=== PATIENT | male | born 1950 | race Caucasian/White ===

== ENCOUNTER 2018-05-10 08:00 | Day surgery (SDC) | payer MEDICARE, OTHER ==
[~2018-05-10] VITALS: Ht 188 cm; Wt 68.2 kg
[2018-05-10] VITALS (14 sets, daily range): BP systolic 113–150; BP diastolic 61–74
[~2018-05-10 08:00] MED LIST: BUPR150T14 PO; CYAN-19 PO; HYDR-3972 PO; LOSA100T15 PO; MOUTH WASH PO; OMEP20TA5 PO; ROSU10TA PO
[2018-05-10] MEDS ORDERED: MORP30TA PO (08:34)
[2018-05-10] MEDS ORDERED: TERA5CAP4 PO (08:34)
[2018-05-10] MEDS ORDERED: TRAZ-218 PO (08:34)
[2018-05-10] MEDS ORDERED: VENL150C2 PO (08:34)
[2018-05-10 08:59] LABS: BASOPHILS # (AUTO) 0.2 X10'3 (0-0.2); BASOPHILS % (AUTO) 1.2 % (0-1); EOSINOPHILS # (AUTO) 0.3 X10'3 (0-0.9); EOSINOPHILS % (AUTO) 1.8 % (0-6); LYMPHOCYTES # (AUTO) 0.3 X10'3 (1.1-4.8); LYMPHOCYTES % (AUTO) 1.5 % (21-51); MEAN CORPUSCULAR HEMOGLOBIN 30.5 PG (27.0-31.0); MEAN CORPUSCULAR HGB CONC 33.3 % (33.0-36.5); MEAN CORPUSCULAR VOLUME 91.5 FL (78-98); MEAN PLATELET VOLUME 6.1 FL (7.4-10.4); MONOCYTES # (AUTO) 0.8 X10'3 (0-0.9); MONOCYTES % (AUTO) 4.2 % (2-12); NEUTROPHILS % (AUTO) 91.3 % (42-75); PRE OP HEMATOCRIT 36.2 % (42.0-52.0); PRE OP HEMOGLOBIN 12.1 g/dL (14.0-17.9); PRE OP PLATELET COUNT 710 X10'3 (140-440); RED BLOOD COUNT 3.96 X10'6 (4.70-6.10); RED CELL DISTRIBUTION WIDTH 13.4 % (11.5-14.5)
[2018-05-10] MEDS ORDERED: normal saline 1000ml 1,000 ML IV SCH (09:05)
[2018-05-10 09:09] LABS: PROTHROMBIN TIME 10.4 SECONDS (9.0-12.0)
[2018-05-10 09:17] LABS: ALBUMIN 2.9 G/DL (3.4-5.0); ANION GAP 10 (8-16); BLOOD UREA NITROGEN 11 MG/DL (7-18); BUN/CREATININE RATIO 12.1 (5.4-32.0); CHLORIDE 90 MMOL/L (99-107); CREATININE 0.91 MG/DL (0.60-1.10); GLUCOSE 92 MG/DL (70-104); POTASSIUM 4.8 MMOL/L (3.5-5.1); SODIUM 126 MMOL/L (135-145); eGFR 83 ML/MIN
[2018-05-10 09:43] LABS: ANISOCYTOSIS 1+; LARGE PLATELETS FEW; PLATELET ESTIMATE INCREASED; POLYCHROMASIA FEW; TOTAL CELLS COUNTED 100
[2018-05-10 09:44] LABS: BURR CELLS 1+
[2018-05-10] MEDS ORDERED: midazolam 2 mg/2 ml injection ONE (10:01)
[2018-05-10] MEDS ORDERED: LIDOcaine 1%/PF 5ML 10 MG/ML VIAL ONE (10:01)
[2018-05-10] MEDS ORDERED: fentaNYL/PF 50MCG/1 ML 2ML syringe ONE (10:01)
[2018-05-10] MEDS ORDERED: HYDROcodone/acetaminophen 10/325mg tab PO PRN (10:55)
== END 2018-05-10 12:30 | disposition home or self-care (01) ==
LOC: SSTAY O 08:00
PROVIDERS: ATTEND Radiology Vascular & Interventional Radiology
DX: D71 Functional disorders of polymorphonuclear neutrophils (principal); I10 Essential (primary) hypertension; J43.9 Emphysema, unspecified; Z87.891 Personal history of nicotine dependence; Z90.2 Acquired absence of lung [part of]; Z87.01 Personal history of pneumonia (recurrent); Z87.09 Personal history of other diseases of the respiratory system; Z92.21 Personal history of antineoplastic chemotherapy; Z92.3 Personal history of irradiation; Z72.89 Other problems related to lifestyle; Z93.1 Gastrostomy status; Z79.891 Long term (current) use of opiate analgesic; Z85.810 Personal history of malignant neoplasm of tongue; Z98.890 Other specified postprocedural states; Z79.899 Other long term (current) drug therapy
CPT/HCPCS: 32405; 36415; 71045; 77012; 80048; 85025; 85610; 87070; 87077; 87186; 99152; 99153; J2001; J2250; J3010; J7030

== ENCOUNTER 2018-12-06 12:41 | Outpatient (CLI) | payer OTHER ==
[~2018-12-06 12:41] MED LIST changes: -LOSA100T15 PO; +LOSA100T57 PO; +MORP30TA PO; -ROSU10TA PO; +ROSU10TA2 PO; +TERA5CAP4 PO; +TRAZ-251 PO; +VENL150C2 PO
== END 2018-12-06 23:59 | disposition home or self-care (01) ==
LOC: RAD 12:41
PROVIDERS: ATTEND Nurse Practitioner Family
DX: D00.00 Carcinoma in situ of oral cavity, unspecified site (principal); R13.12 Dysphagia, oropharyngeal phase; I10 Essential (primary) hypertension; J44.9 Chronic obstructive pulmonary disease, unspecified; Z85.89 Personal history of malignant neoplasm of other organs and systems; Z87.891 Personal history of nicotine dependence
CPT/HCPCS: 74230

== ENCOUNTER 2019-04-24 12:38 | Day surgery (SDC) | payer OTHER ==
[2019-04-23 11:50] LABS: BASOPHILS % (AUTO) 0.4 % (0-1); EOSINOPHILS # (AUTO) 0.2 X10'3 (0-0.9); EOSINOPHILS % (AUTO) 2.7 % (0-6); LYMPHOCYTES # (AUTO) 0.8 X10'3 (1.1-4.8); LYMPHOCYTES % (AUTO) 9.5 % (21-51); MEAN CORPUSCULAR HEMOGLOBIN 31.4 PG (27.0-31.0); MEAN CORPUSCULAR HGB CONC 34.1 g/dL (33.0-36.5); MEAN PLATELET VOLUME 6.6 FL (7.4-10.4); MONOCYTES # (AUTO) 0.9 X10'3 (0-0.9); MONOCYTES % (AUTO) 9.8 % (2-12); NEUTROPHILS # (AUTO) 6.9 X10'3 (1.8-7.7); NEUTROPHILS % (AUTO) 77.6 % (42-75); PRE OP HEMATOCRIT 34.8 % (42.0-52.0); PRE OP HEMOGLOBIN 11.8 g/dL (14.0-17.9); PRE OP PLATELET COUNT 313 X10'3 (140-440); RED BLOOD COUNT 3.78 X10'6 (4.70-6.10); RED CELL DISTRIBUTION WIDTH 13.6 % (11.5-14.5)
[2019-04-23 12:03] LABS: PRE OP INR 0.9 INR; PRE OP PROTIME 9.9 SECONDS (9.0-12.0)
[2019-04-23 12:12] LABS: ALBUMIN 3.8 G/DL (3.4-5.0); ALBUMIN/GLOBULIN RATIO 1.1 (1.1-1.5); ALKALINE PHOSPHATASE 91 IU/L (46-116); BLOOD UREA NITROGEN 10 MG/DL (7-18); BUN/CREATININE RATIO 12.5 (5.4-32.0); CALCIUM 9.1 MG/DL (8.5-10.1); CHLORIDE 95 MMOL/L (99-107); PRE OP ALT 22 U/L (30-65); PRE OP ANION GAP 10 (8-16); PRE OP AST 29 U/L (10-37); PRE OP BILIRUB, TOTAL 0.3 MG/DL (0.0-1.0); PRE OP POTASSIUM 4.6 MMOL/L (3.4-5.1); TOTAL CARBON DIOXIDE 24.4 MMOL/L (24-32); TOTAL PROTEIN 7.4 G/DL (6.4-8.2); eGFR > 90 ML/MIN
[2019-04-23 12:13] LABS: PRE OP GLUCOSE 60 MG/DL (70-104); PRE OP SODIUM 129 MMOL/L (135-145)
[2019-04-24] VITALS (8 sets, daily range): BP systolic 133–157; BP diastolic 81–89
[~2019-04-24] VITALS: Ht 188 cm; Wt 71.8 kg
[~2019-04-24 12:38] MED LIST changes: +ALBU8.5H8 IH; +CHOL400T14 PO; +CLON0.5T23 PO; -CYAN-19 PO; +CYAN100019 PO; +FERR325T32 PO; +LEVO88TA2 PO; +TIOT18CA3 INH; +albuterol 2.5 MG/3 ML nebule NEB ONE; +cefazolin/dext.iso 2gm/100 ML IV ONE; +famotidine 20mg tablet PO ONE; +ringers solution, lacted 1,000 ML IV SCH
[2019-04-24] MEDS ORDERED: BUPIVAcaine/PF 2.5 mg/ml (0.25%) 30ml vial ONE (13:31)
[2019-04-24] MEDS ORDERED: LIDOcaine 1% 30ml preserv. free vial ONE ×2 (13:31→16:36)
--- NOTE | 2019-04-24 13:59 | NUR ---
BLOOD SUGAR 67 PATIENT ASYMPTOMATIC, DR. ENGLISH MADE AWARE, NO NEW ORDERS NOTED.
[2019-04-24] MEDS ORDERED: ringers solution, lacted 1,000 ML IV SCH (14:32)
[2019-04-24] MEDS ORDERED: labetalol 20mg/4ml (5mg/ml) syringe IV PRN (14:35)
[2019-04-24] MEDS ORDERED: fentaNYL/PF 50MCG/1 ML 2ML syringe IV PRN ×2 (14:35)
[2019-04-24] MEDS ORDERED: morphine 4 MG/ML inj SYRINge IV PRN ×2 (14:35)
[2019-04-24] MEDS ORDERED: ondansetron/PF 4mg/2ml inj IV PRN (14:35)
[2019-04-24] MEDS ORDERED: hydrALAZINE 20mg/ml inj. IV PRN (14:35)
[2019-04-24] MEDS ORDERED: midazolam 2 mg/2 ml injection ONE (15:21)
[2019-04-24] MEDS ORDERED: LIDOcaine 2% (20mg/ml) 5ml vial ONE (15:21)
[2019-04-24] MEDS ORDERED: propofol inj 20 ML IV ONE (15:21)
[2019-04-24] MEDS ORDERED: fentaNYL/PF 50MCG/1 ML 2ML syringe ONE ×2 (15:21→16:40)
[2019-04-24] MEDS ORDERED: ondansetron/PF 4mg/2ml inj ONE (15:22)
[2019-04-24] MEDS ORDERED: rocuronium 10mg/ml inj IV ONE (15:22)
[2019-04-24] MEDS ORDERED: glycopyrrolate 0.2mg/ml inj ONE (15:22)
[2019-04-24] MEDS ORDERED: ROPIVAcaine 0.5% (5mg/ml) 30ml vial ONE (15:56)
[2019-04-24] MEDS ORDERED: ketorolac trometh. 30mg/ml inj. ONE (15:56)
--- NOTE | 2019-04-24 16:58 | NUR ---
Received from OR via , accompanied by Anesthesiologist DR ENGLISH and report given by Anesthesiolgist. AWAKENS TO VOICE. VITALS STABLE. DRESSINGS DI. ASTRID PAIN. ABD SOFT.
[2019-04-24] MEDS ORDERED: oxyCODONE/APAP 10/325mg tablet PO PRN (17:40)
[2019-04-24] MEDS ORDERED: non-formulary drug (Albuterol Sulfate (Proair Hfa) 2 PUFFS) IH PRN (17:40)
[2019-04-24] MEDS ORDERED: HYDROcodone/acetaminophen 10/325mg tab PO PRN (17:40)
--- NOTE | 2019-04-24 17:58 | NUR ---
AWAKE AND ORIENTED. VITALS STABLE. DRESSINGS DI. STATES ONLY MIN DISCOMFORT. HOME WITH HIS AT THIS TIME.
[2019-04-24] MEDS ORDERED: morphine IR (immed. release) 30mg tablet PO SCH (21:00)
[2019-04-24] MEDS ORDERED: traZODone 50mg tablet PO SCH (21:00)
[2019-04-24] MEDS ORDERED: terazosin 5mg capsule PO SCH (21:00)
[2019-04-25] MEDS ORDERED: non-formulary drug (Clonazepam 1 TAB) PO SCH
[2019-04-25] MEDS ORDERED: non-formulary drug (Losartan Potassium 1 TAB) PO SCH (08:00)
[2019-04-25] MEDS ORDERED: non-formulary drug (Tiotropium Bromide (Spiriva) 1 CAP) INH SCH (08:00)
[2019-04-25] MEDS ORDERED: ferrous sulfate 325mg tablet PO SCH (08:00)
[2019-04-25] MEDS ORDERED: non-formulary drug (Venlafaxine HCl (Effexor Xr) 1 CAP) PO SCH (08:00)
[2019-04-25] MEDS ORDERED: levoTHYROXINE 88mcg tablet PO SCH (08:00)
[2019-04-25] MEDS ORDERED: CHOLECALCIFEROL 2000 UNIT PO SCH (08:00)
[2019-04-25] MEDS ORDERED: buPROPion SR 150mg tablet PO SCH (08:00)
[2019-04-25] MEDS ORDERED: non-formulary drug (Rosuvastatin Calcium* (Crestor*) 1 TAB) PO SCH (08:00)
[2019-04-25] MEDS ORDERED: non-formulary drug (Omeprazole 1 TAB) PO SCH (08:00)
== END 2019-04-24 17:58 | disposition home or self-care (01) ==
LOC: PAS 12:38
PROVIDERS: ATTEND Surgery
DX: K43.2 Incisional hernia without obstruction or gangrene (principal); Z45.2 Encounter for adjustment and management of vascular access device; J43.9 Emphysema, unspecified; I10 Essential (primary) hypertension; F32.9 Major depressive disorder, single episode, unspecified; G89.29 Other chronic pain; E03.9 Hypothyroidism, unspecified; K21.9 Gastro-esophageal reflux disease without esophagitis; N40.0 Benign prostatic hyperplasia without lower urinary tract symptoms; E87.1 Hypo-osmolality and hyponatremia; Z79.899 Other long term (current) drug therapy; Z87.891 Personal history of nicotine dependence; Z79.82 Long term (current) use of aspirin; Z79.01 Long term (current) use of anticoagulants; Z98.890 Other specified postprocedural states; Z93.1 Gastrostomy status; Z82.3 Family history of stroke; Z80.3 Family history of malignant neoplasm of breast; Z82.49 Family history of ischemic heart disease and other diseases of the circulatory system; R06.02 Shortness of breath
CPT/HCPCS: 36415; 36590; 49654; 71046; 73110; 80053; 82948; 85025; 85610; 85730; 93005; 94640; 94760; C1781; J1885; J2001; J2250; J2405; J2704; J3010; J3490; J7120; A4215; A4618; J2795